=== PATIENT | male | born 1960 | race Native Hawaiian/Other Pacific Islander ===

== ENCOUNTER 2018-03-22 09:44 | Outpatient (CLI) | payer BC ==
[~2018-03-22 09:44] MED LIST: CELEBREX200 MG PO; LORAZEPAM0.5 MG PO; TEMA30CA18 PO
== END 2018-03-22 22:28 | disposition home or self-care (01) ==
LOC: MRI 09:44
DX: M25.511 Pain in right shoulder (principal)

== ENCOUNTER 2018-10-19 07:38 | Outpatient (CLI) | payer BC | END 2018-10-19 20:29 | disposition home or self-care (01) | LOC: CT 07:38 | DX: I65.29 Occlusion and stenosis of unspecified carotid artery (principal) | CPT/HCPCS: 36415; 82565; 84520; Q9963 ==

== ENCOUNTER 2018-10-22 07:57 | Outpatient (CLI) | payer BC | END 2018-10-22 20:27 | disposition home or self-care (01) | LOC: CT 07:57 | DX: I65.29 Occlusion and stenosis of unspecified carotid artery (principal) ==

== ENCOUNTER 2022-08-22 10:54 | Outpatient (CLI) | payer OTHER | END 2022-08-22 20:44 | disposition home or self-care (01) | LOC: RAD 10:54 | PROVIDERS: ATTEND Physician Assistant | DX: M06.4 Inflammatory polyarthropathy (principal); M54.2 Cervicalgia; M54.51 Vertebrogenic low back pain ==